=== PATIENT | male | born 1985 | race Caucasian/White ===

== ENCOUNTER → 2019-12-21 | Outpatient (CLI) | payer SELFPAY ==
[2019-12-21 12:50] LABS: FREE THYROXINE INDEX 3.2 % (1.4-3.8); THYROID STIMULATING HORMONE 2.32 uIU/ML (0.358-3.740); THYROXINE (T4) 9.2 UG/DL (4.5-12.0)
== END ==
LOC: M LAB 10:44
PROVIDERS: ATTEND Ophthalmology
DX: H05.20 Unspecified exophthalmos (principal)